=== PATIENT | male | born 1990 | race Hispanic/Latino ===

== ENCOUNTER 2020-03-23 17:51 | Emergency (ER) | payer SELFPAY ==
[2020-03-23] MEDS ORDERED: MORPHINE 4 MG/1 ML INJ ONE (18:01)
[2020-03-23] MEDS ORDERED: ONDANSETRON 4 MG/2 ML INJ ONE (18:01)
[2020-03-23] MEDS ORDERED: SODIUM CHLORIDE 0.9% 1000 ML 1,000 ML ONE (18:02)
[2020-03-23 18:07] VITALS: BP 159/97
--- NOTE | 2020-03-23 18:33 | Emergency Department Report ---
ED General Adult HPI - General Chief complaint: Multiple Trauma Stated complaint: FALL Time Seen by Provider: 03/23/20 18:06 Source: patient Mode of arrival: Wheelchair Limitations: No Limitations - History of Present Illness Initial comments: The patient presents to the emergency department due to a fall from approximately 15 to 20 feet. Patient states he was working on a deck when he fell off of the deck and landed on a rock on his left side. Patient denies hitting his head or loss consciousness but does endorse lower back pain as well as chest and abdominal pain. Patient states when he takes a deep breath it hurts. He describes his pain as being 8 out of 10. -: Sudden Location: chest, back, abdomen Radiation: non-radiation Severity scale (0 -10): 8 Quality: sharp Consistency: constant Improves with: rest Worsens with: movement Associated Symptoms: denies other symptoms Treatments Prior to Arrival: none - Related Data Previous Rx's Medication Instructions Recorded Last Taken Type HYDROcodone/APAP 5-325 [[place] 1 each PO Q6HR PRN #20 tablet 03/23/20 Unknown Rx 5/325] Allergies Allergy/AdvReac Type Severity Reaction Status Date / Time ibuprofen Allergy Anaphylaxis Verified 03/23/20 17:53 ED Review of Systems ROS: Stated complaint: FALL Other details as noted in HPI Constitutional: denies: chills, fever Eyes: denies: eye pain, eye discharge, vision change ENT: denies: ear pain, throat pain Respiratory: denies: cough, shortness of breath, wheezing Cardiovascular: chest pain. denies: palpitations Endocrine: no symptoms reported Gastrointestinal: abdominal pain. denies: nausea, diarrhea Genitourinary: denies: urgency, dysuria Musculoskeletal: back pain. denies: joint swelling, arthralgia Skin: denies: rash, lesions Neurological: denies: headache, weakness, paresthesias Psychiatric: denies: anxiety, depression Hematological/Lymphatic: denies: easy bleeding, easy bruising ED Past Medical Hx - Past Medical History Previous Medical History?: No - Surgical History Past Surgical History?: No - Social History Smoking Status: Never Smoker Substance Use Type: None - Medications Home Medications: Home Medications Medication Instructions Recorded Confirmed Last Taken Type HYDROcodone/APAP 5-325 [[place] 1 each PO Q6HR PRN #20 tablet 03/23/20 Unknown Rx 5/325] ED Physical Exam - General Limitations: No Limitations General appearance: alert, in no apparent distress - Head Head exam: Present: atraumatic, normocephalic - Eye Eye exam: Present: normal appearance, PERRL, EOMI - ENT ENT exam: Present: mucous membranes moist - Neck Neck exam: Present: normal inspection - Respiratory Respiratory exam: Present: normal lung sounds bilaterally, chest wall tenderness. Absent: respiratory distress - Cardiovascular Cardiovascular Exam: Present: regular rate, normal rhythm. Absent: systolic murmur, diastolic murmur, rubs, gallop - GI/Abdominal GI/Abdominal exam: Present: soft, tenderness (Patient is tenderness palpation throughout the left upper quadrant and there is a large superficial bruise of the left upper quadrant. There is also tenderness palpation of ribs 4 through 8 left side), normal bowel sounds - Rectal Rectal exam: Present: deferred - Extremities Exam Extremities exam: Present: normal inspection - Back Exam Back exam: Present: normal inspection - Neurological Exam Neurological exam: Present: alert, oriented X3, CN II-XII intact. Absent: motor sensory deficit - Psychiatric Psychiatric exam: Present: normal affect, normal mood - Skin Skin exam: Present: warm, dry, intact, normal color. Absent: rash ED Course Vital Signs 03/23/20 03/23/20 03/23/20 18:04 18:15 19:09 Temperature 98.6 F Pulse Rate 100 H Respiratory 18 18 Rate Blood Pressure 159/97 O2 Sat by Pulse 99 Oximetry ED Medical Decision Making - Lab Data Result diagrams: 03/23/20 19:41 Lab Results 03/23/20 Range/Units 19:41 WBC 9.8 (4.5-11.0) K/mm3 RBC 4.48 (3.65-5.03) M/mm3 Hgb 13.9 (11.8-15.2) gm/dl Hct 40.5 (35.5-45.6) % MCV 90 (84-94) fl MCH 31 (28-32) pg MCHC 34 (32-34) % RDW 13.4 (13.2-15.2) % Plt Count 188 (140-440) K/mm3 Lymph % (Auto) 21.9 (13.4-35.0) % [place] % (Auto) 8.8 H (0.0-7.3) % Eos % (Auto) 0.0 (0.0-4.3) % Baso % (Auto) 0.4 (0.0-1.8) % Lymph # 2.2 (1.2-5.4) K/mm3 [place] # 0.9 H (0.0-0.8) K/mm3 Eos # 0.0 (0.0-0.4) K/mm3 Baso # 0.0 (0.0-0.1) K/mm3 Seg Neutrophils % 68.9 (40.0-70.0) % Seg Neutrophils # 6.8 (1.8-7.7) K/mm3 - Radiology Data Radiology results: report reviewed - Medical Decision Making Discussed results with patient On reexamination of the patient 8:30 PM there is no saddle paresthesias and the patient asked to void his bladder Critical care attestation.: If time is entered above; I have spent that time in minutes in the direct care of this critically ill patient, excluding procedure time. ED Disposition Clinical Impression: Bulging lumbar disc, Fall, Trauma, Chest wall pain, Abdominal pain Disposition: DC-01 TO HOME OR SELFCARE Is pt being admited?: No Does the pt Need Aspirin: No Condition: Stable Instructions: Lumbar Disc Herniation (ED), Fall Prevention (ED), Thoracic Pain (ED) Additional Instructions: return if worse Referrals: DANISHA LUGO II, MD [Staff Physician] - 3-5 Days Time of Disposition: 20:53
[2020-03-23] MEDS ORDERED: MORPHINE 4 MG/1 ML INJ IV ONE ×2 (18:46→19:35)
[2020-03-23] MEDS ORDERED: SODIUM CHLORIDE 0.9% 1000 ML 1,000 ML IV ONE (18:46)
[2020-03-23] MEDS ORDERED: ONDANSETRON 4 MG/2 ML INJ IV ONE (18:46)
[2020-03-23 20:06] LABS: Basophils % (Auto) 0.4 % (0.0-1.8); Hematocrit 40.5 % (35.5-45.6); Hemoglobin 13.9 gm/dl (11.8-15.2); Lymphocytes # (Auto) 2.2 K/mm3 (1.2-5.4); Lymphocytes % (Auto) 21.9 % (13.4-35.0); Mean Corpuscular HGB Conc 34 % (32-34); Mean Corpuscular Volume 90 fl (84-94); Monocytes # (Auto) 0.9 K/mm3 (0.0-0.8); Monocytes % (Auto) 8.8 % (0.0-7.3); Platelet Count 188 K/mm3 (140-440); Red Blood Count 4.48 M/mm3 (3.65-5.03); Red Cell Distribution Width 13.4 % (13.2-15.2)
--- NOTE | 2020-03-23 20:34 | Cat Scan Report ---
CT lumbar spine wo con INDICATION / CLINICAL INFORMATION: 30 years Male; midline l spine ttp fall from 20 feet. TECHNIQUE: Axial CT images of the lumbar spine were obtained after administration of intrathecal contrast. Sagi ttal and coronal reformatted images were produced. All CT scans at this location are performed using CT dose reduction for ALARA by means of automated exposure control. COMPARISON: None available. FINDINGS: POST-SURGICAL CHANGES: None. ALIGNMENT: There is no significant spondylolisthesis or scoliosis involving the lumbar spine. VERTEBRAE: There are multilevel mild endplate changes and Schmorl's nodes involving visualized thorac olumbar segments. However, there is no clear CT evidence of acute compression fracture or bony spinal stenosis. INTERVERTEBRAL DISCS: There appears be slight disc bulge and mild facet joint changes at L5-S1 with m ild to moderate right and mild left neural foraminal narrowing. The disc bulge L4-5 slightly flattens the ventral thecal sac. There is no significant foraminal narrowing. This broad-based central disc bulge L3-4 which mildly deforms the ventral thecal sac. The neural fora men are patent. The disc bulge L2-3 slightly flattens the ventral thecal sac. There is no stenosis at L1-2. PARASPINAL SOFT TISSUES: No significant abnormality. ADDITIONAL FINDINGS: None. IMPRESSION: 1. There is no CT evidence of acute fracture involving lumbar spine. 2. There are multilevel disco bulges as described above. Signer Name: Avtar Britton MD Signed: 03/23/2020 8:30 PM Workstation Name: [id number]
--- NOTE | 2020-03-23 20:36 | Cat Scan Report ---
CT CHEST, ABDOMEN, AND PELVIS WITH IV CONTRAST INDICATION / CLINICAL INFORMATION: fall from 20 feet. TECHNIQUE: Axial CT images were obtained through the chest, abdomen, and pelvis after IV contrast. All CT scans at this location are performed using CT dose reduction for ALARA by means of automated exposure contr ol. COMPARISON: None available. FINDINGS: HEART: No significant abnormality. THORACIC AORTA: No significant abnormality. MEDIASTINUM and NIRMAL: No significant abnormality. LUNGS: Mild linear atelectasis noted in the bilateral lung bases as well as the lingula and middle lo be. PLEURA: No significant pleural effusion. No pneumothorax. ADDITIONAL CHEST FINDINGS: Heterogeneous 2.7 cm right thyroid lesion. LIVER: No significant abnormality. GALLBLADDER: No significant abnormality. BILE DUCTS: No significant abnormality. PANCREAS: No significant abnormality. SPLEEN: No significant abnormality. ADRENALS: No significant abnormality. RIGHT KIDNEY / URETER: No significant abnormality. LEFT KIDNEY / URETER: No significant abnormality. STOMACH and SMALL BOWEL: No significant abnormality. COLON: No significant abnormality. APPENDIX: No significant abnormality. PERITONEUM: No free fluid. No free air. No fluid collection. LYMPH NODES: No significant adenopathy. AORTA and ARTERIES: No significant abnormality. IVC and VEINS: No significant abnormality. URINARY BLADDER: No significant abnormality. REPRODUCTIVE ORGANS: No significant abnormality. ADDITIONAL FINDINGS: None. SKELETAL SYSTEM: No acute fracture or dislocation. IMPRESSION: 1. No acute traumatic injury to the chest abdomen or pelvis. Signer Name: Shorty Garcia MD Signed: 03/23/2020 8:31 PM Workstation Name: [id number]
[2020-03-23] MEDS ORDERED: HYDROcodone/ACETAMINOPHEN 5-325 MG TAB PO ONE (21:18)
== END 2020-03-23 21:35 | disposition home or self-care (01) ==
LOC: ED 17:51
DX: M51.26 Other intervertebral disc displacement, lumbar region (principal); R10.9 Unspecified abdominal pain; R07.9 Chest pain, unspecified; Z79.899 Other long term (current) drug therapy; Z88.6 Allergy status to analgesic agent; W17.89XA Other fall from one level to another, initial encounter; Y93.89 Activity, other specified; Y92.89 Other specified places as the place of occurrence of the external cause; Y99.8 Other external cause status
CPT/HCPCS: 36415; 71260; 72131; 74177; 85025; 96361; 96374; 96375; 96376; 99284; J2270; J2405; J7030; Q9967